=== PATIENT | male | born 1960 | race Caucasian/White ===

== ENCOUNTER → 2019-11-21 18:53 | Outpatient (CLI) | payer OTHER | END | disposition home or self-care (01) | LOC: D.LABREF 18:53 | PROVIDERS: ATTEND Anesthesiology Pain Medicine | DX: M16.0 Bilateral primary osteoarthritis of hip (principal) ==

== ENCOUNTER → 2020-01-15 15:22 | Outpatient (CLI) | payer MEDICARE ==
[2020-01-15 16:24] LABS: BASOPHILS 0.3 % (0-2); EOSINOPHILS 2.9 % (0-7); HEMATOCRIT 45.9 % (42.0-54.0); IMMATURE GRANULOCYTES 0.1 % (0-5); LYMPHOCYTES 34.4 % (15-50); MCH 31.3 pg (26.0-34.0); MCHC 32.7 g/dL (31.0-37.0); MCV 95.6 fL (80.0-100.0); MEAN PLATELET VOLUME 10.1 fL (7.4-10.4); NEUTROPHILS 56.3 % (40-80); PLATELET COUNT 208 10x3/uL (130-400); RDW 12.9 % (11.5-14.5); WBC 7.5 10x3/uL (4.8-10.8)
[2020-01-15 16:48] LABS: INR 1.96 (0.85-1.17); PROTIME 22.1 SECONDS (11.6-15.0)
[2020-01-15 16:57] LABS: ALBUMIN 4.5 g/dL (3.4-5.0); ALKALINE PHOSPHATASE 77 U/L (30-120); ALT (SGPT) 24 U/L (10-68); CARBON DIOXIDE 32.1 mmol/L (21.0-32.0); CHLORIDE - SERUM 100 mmol/L (98-107); POTASSIUM - SERUM 4.6 mmol/L (3.5-5.1); PROTEIN - SERUM 7.8 g/dL (6.4-8.2); SODIUM 140 mmol/L (136-145)
[2020-01-15 17:09] LABS: GLUCOSE 142 mg/dL (74-106)
[2020-01-15 17:10] LABS: CALC OSMOLALITY 281 mosm/kg (275-300); CALCIUM 9.3 mg/dL (8.5-10.1); CREATININE - SERUM 0.9 mg/dL (0.6-1.3); UREA NITROGEN 15 mg/dL (7-18); eGFR NON AFRICAN AMERICAN > 90 mL/min (90-120)
[2020-01-16 11:08] LABS: ANA REFLEX - DIRECT Negative (Negative)
== END | disposition home or self-care (01) ==
LOC: D.LABREF 15:22
PROVIDERS: ATTEND Internal Medicine Hematology & Oncology
DX: D68.69 Other thrombophilia (principal); I82.409 Acute embolism and thrombosis of unspecified deep veins of unspecified lower extremity